=== PATIENT | male | born 1985 | race Caucasian/White ===

== ENCOUNTER 2017-02-19 21:57 | Emergency (ER) | payer OTHER ==
--- NOTE | ~2017-02-19 | CR72 ---
[facility] A Service of [facility] & [facility] RADIOLOGY TEXT RESULTS PATIENT: TERRENCE STILES LOCATION: [facility] : 83 UNIT #: [id number] AGE: [address]: Basim King MD SEX: M ORDER DR: [id number] [facility] [address] [place], [place] [address] [id number] E MR#: [id number] Acc #: [id number] NAME: TERRENCE STILES : 1985 SEX: M STUDY DATE/TIME: 02/19/2017 21:52 UNIT: [facility] ROOM: STUDY DESCRIPTION: CR Chest Single View Portable Attending Physician: Basim King M.D. Ordering Physician: Basim King M.D. Primary Care Physician: Suleiman Quinonez M.D. MEDICAL IMAGING REPORT This report is preliminary unless electronic signature is present EXAM Portable chest x-ray, 02/19/2017 HISTORY Chest pain today, overdose, short of air. FINDINGS AP radiograph of the chest is presented. Comparison 12/10/2012. No acute bony abnormality. Heart and mediastinum normal in size and contour. The lungs are well inflated and clear. No evidence of acute infectious or inflammatory disease, pleural effusion or pneumothorax. No suspicious nodule. Dictated by... David Mccarthy M.D. THIS IS AN ELECTRONICALLY VERIFIED REPORT David Mccarthy M.D. at 02/23/2017 12:40 PM JEFFERSON/hyacinth TD: 02/20/2017 05:03 JOB #: [id number] MEDICAL IMAGING REPORT Page 1 of 1 COPY
[~2017-02-19 21:57] MED LIST: DICLOFENAC PO; FLONASE 0.05% N16 G1; NO MEDICATIONS
== END 2017-02-20 00:37 | disposition home or self-care (01) ==
LOC: CED 21:57
DX: T40.1X1A Poisoning by heroin, accidental (unintentional), initial encounter (principal); Y92.9 Unspecified place or not applicable; F17.200 Nicotine dependence, unspecified, uncomplicated
CPT/HCPCS: 71010; 99283